=== PATIENT | female | born 1980 | race Caucasian/White ===

== ENCOUNTER 2022-05-03 10:38 | Day surgery (SDC) | payer OTHER ==
[2022-05-03] MEDS ORDERED: LIDOCAINE HCL 1% 50 MG/5 ML VL PF IJ ONE (10:39)
[2022-05-03] MEDS ORDERED: Sodium Chloride 0.9(Preservative Free) 10 ML IJ ONE (10:39)
[2022-05-03] MEDS ORDERED: Depo-Medrol 40 MG/ML IM ONE (10:39)
[2022-05-03] MEDS ORDERED: DIPRIVAN 200 MG/20 ML IV ONE (13:32)
[2022-05-03] MEDS ORDERED: MORPHINE SULFATE 2 MG INJ ONE ×2 (13:51→14:02)
[2022-05-03] MEDS ORDERED: Lactated Ringers 1,000 ML IV ONE (14:28)
--- NOTE | 2022-05-03 16:52 | XRAY ---
Indication: Caudal MAXIMINO. Intraoperative fluoroscopy provided for 17 seconds. 5 digital spot image submitted for interpretation demonstrates caudal needle tip projecting mid sacrum. Small amount of contrast injected for needle tip placement. Correlate with intraoperative findings/report.
--- NOTE | 2022-05-04 08:39 | XRAY ---
17 seconds of fluoroscopy was used in surgery for a caudal MAXIMINO.
== END 2022-05-03 14:10 | disposition home or self-care (01) ==
LOC: SDC-PAIN 10:38
PROVIDERS: ATTEND Psychiatry & Neurology Pain Medicine
DX: M54.16 Radiculopathy, lumbar region (principal); Z79.899 Other long term (current) drug therapy
CPT/HCPCS: 62323; 72220; 77003; 81025; J1030; J2001; J2270; J2704; Q9966

== ENCOUNTER 2022-10-04 12:47 | Day surgery (SDC) | payer OTHER ==
[2022-10-04] MEDS ORDERED: LIDOCAINE HCL 2% 100 MG/5 ML IJ ONE (12:48)
[2022-10-04 13:47] LABS: HCG URINE TEST NEGATIVE (NEGATIVE)
[2022-10-04] MEDS ORDERED: DIPRIVAN 200 MG/20 ML IV ONE ×2 (14:20→14:29)
--- NOTE | 2022-10-04 15:10 | XRAY ---
Indication: Bilateral L4-S1 MBB. Intraoperative fluoroscopy provided for 5 seconds. Single digital spot image submitted for interpretation demonstrates posterior needle tips projecting over the expected left and right L4-S1 nerve roots. Correlate with intraoperative findings/report.
[2022-10-04] MEDS ORDERED: MORPHINE SULFATE 2 MG INJ ONE (15:15)
[2022-10-04] MEDS ORDERED: Lactated Ringers 1,000 ML IV ONE (16:51)
--- NOTE | 2022-10-04 20:13 | XRAY ---
5 seconds of fluoroscopy was used in surgery for a bilateral L4-S1 MBB.
== END 2022-10-04 15:35 | disposition home or self-care (01) ==
LOC: SDC-PAIN 12:47
PROVIDERS: ATTEND Psychiatry & Neurology Pain Medicine
DX: M47.816 Spondylosis without myelopathy or radiculopathy, lumbar region (principal); Z79.899 Other long term (current) drug therapy
CPT/HCPCS: 64493; 64494; 72020; 77002; 81025; J2270; J2704

== ENCOUNTER 2022-11-08 12:40 | Day surgery (SDC) | payer OTHER ==
[2022-11-08] MEDS ORDERED: BUPIVACAINE 0.5% VIAL IJ ONE (12:41)
[2022-11-08 13:23] LABS: HCG URINE TEST NEGATIVE (NEGATIVE)
[2022-11-08] MEDS ORDERED: Versed 2 MG/2 ML Injection ONE ×2 (13:33→14:33)
[2022-11-08] MEDS ORDERED: DIPRIVAN 200 MG/20 ML IV ONE (14:32)
[2022-11-08] MEDS ORDERED: MORPHINE SULFATE 2 MG INJ ONE (14:59)
[2022-11-08] MEDS ORDERED: Lactated Ringers 1,000 ML IV ONE (16:16)
--- NOTE | 2022-11-08 16:40 | XRAY ---
Indication: Bilateral L4-S1 MBB. Intraoperative fluoroscopy provided for 15 seconds. Single digital spot image submitted for interpretation demonstrates posterior needle tips projecting over the expected left and right L4-S1 nerve roots. Correlate with intraoperative findings/report.
--- NOTE | 2022-11-08 16:46 | XRAY ---
15 seconds of fluoroscopy was used in surgery for a bilateral L4-S1 MBB.
== END 2022-11-08 14:56 | disposition home or self-care (01) ==
LOC: SDC-PAIN 12:40
PROVIDERS: ATTEND Psychiatry & Neurology Pain Medicine
DX: M47.816 Spondylosis without myelopathy or radiculopathy, lumbar region (principal); Z79.899 Other long term (current) drug therapy
CPT/HCPCS: 64493; 64494; 72020; 77002; 81025; J2250; J2270; J2704

== ENCOUNTER 2022-12-20 12:55 | Day surgery (SDC) | payer OTHER ==
[2022-12-20] MEDS ORDERED: BUPIVACAINE 0.5% VIAL IJ ONE (12:56)
[2022-12-20] MEDS ORDERED: Depo-Medrol 40 MG/ML IM ONE (12:56)
[2022-12-20] MEDS ORDERED: LIDOCAINE HCL 1% 50 MG/5 ML VL PF IJ ONE (12:56)
[2022-12-20 14:22] LABS: HCG URINE TEST NEGATIVE (NEGATIVE)
[2022-12-20] MEDS ORDERED: Versed 2 MG/2 ML Injection ONE (15:56)
[2022-12-20] MEDS ORDERED: DIPRIVAN 200 MG/20 ML IV ONE (15:56)
[2022-12-20] MEDS ORDERED: Lactated Ringers 1,000 ML IV ONE (16:30)
--- NOTE | 2022-12-20 17:03 | XRAY ---
Indication: Right L4-S1 RFA. Intraoperative fluoroscopy provided for 16 seconds. For digital spot image submitted for interpretation demonstrates posterior needle tips projecting over the expected right L4-S1 nerve roots. Correlate with intraoperative findings/report.
--- NOTE | 2022-12-20 17:21 | XRAY ---
16 seconds of fluoroscopy was used in surgery for a right L4-S1 RFA.
== END 2022-12-20 16:20 | disposition home or self-care (01) ==
LOC: SDC-PAIN 12:55
PROVIDERS: ATTEND Psychiatry & Neurology Pain Medicine
DX: M47.816 Spondylosis without myelopathy or radiculopathy, lumbar region (principal); Z79.899 Other long term (current) drug therapy
CPT/HCPCS: 64635; 64636; 72100; 77002; 81025; J1030; J2001; J2250; J2704

== ENCOUNTER 2022-12-21 10:49 | Day surgery (SDC) | payer OTHER ==
[2022-12-21] MEDS ORDERED: Depo-Medrol 40 MG/ML IM ONE (10:50)
[2022-12-21] MEDS ORDERED: BUPIVACAINE 0.5% VIAL IJ ONE (10:50)
[2022-12-21] MEDS ORDERED: XYLOCAINE 1% HCL 20 ML MDV IJ ONE (10:50)
[2022-12-21 12:24] LABS: HCG URINE TEST NEGATIVE (NEGATIVE)
[2022-12-21] MEDS ORDERED: DIPRIVAN 200 MG/20 ML IV ONE (13:20)
[2022-12-21] MEDS ORDERED: MORPHINE SULFATE 2 MG INJ ONE (13:40)
[2022-12-21] MEDS ORDERED: Lactated Ringers 1,000 ML IV ONE (14:28)
--- NOTE | 2022-12-21 16:27 | XRAY ---
Indication: Left L4-S1 RFA Intraoperative fluoroscopy provided for 24 seconds. 5 digital spot image submitted for interpretation demonstrates posterior needle tips projecting over the expected left L4-S1 nerve roots. Correlate with intraoperative findings/report.
--- NOTE | 2022-12-21 16:37 | XRAY ---
24 seconds of fluoroscopy was used in surgery for a left L4-S1 RFA.
== END 2022-12-21 14:05 | disposition home or self-care (01) ==
LOC: SDC-PAIN 10:49
PROVIDERS: ATTEND Psychiatry & Neurology Pain Medicine
DX: M47.816 Spondylosis without myelopathy or radiculopathy, lumbar region (principal)
CPT/HCPCS: 64635; 64636; 72100; 77002; 81025; J1030; J2270; J2704

== ENCOUNTER 2023-01-31 12:58 | Day surgery (SDC) | payer OTHER ==
[2023-01-31] MEDS ORDERED: Sodium Chloride 0.9(Preservative Free) 10 ML IJ ONE (12:59)
[2023-01-31] MEDS ORDERED: Decadron 4 MG INJ IV ONE (12:59)
[2023-01-31 14:09] LABS: HCG URINE TEST NEGATIVE (NEGATIVE)
[2023-01-31] MEDS ORDERED: DIPRIVAN 200 MG/20 ML IV ONE (14:37)
[2023-01-31] MEDS ORDERED: Versed 2 MG/2 ML Injection ONE (14:38)
[2023-01-31] MEDS ORDERED: MORPHINE SULFATE 2 MG INJ ONE ×2 (15:00→15:21)
[2023-01-31] MEDS ORDERED: Lactated Ringers 1,000 ML IV ONE (15:34)
--- NOTE | 2023-01-31 20:59 | XRAY ---
Indication: Left L4-S1 transforaminal MAXIMINO. Intraoperative fluoroscopy provided for 19 seconds. 4 digital spot image submitted for interpretation demonstrates posterior needle tip projecting over the expected left L4 and L5 nerve roots. Small amount of contrast injected for needle tip placement. Correlate with intraoperative findings/report.
--- NOTE | 2023-01-31 21:43 | XRAY ---
19 seconds of fluoroscopy was used in surgery for a left L4-S1 transforaminal MAXIMINO.
== END 2023-01-31 15:40 | disposition home or self-care (01) ==
LOC: SDC-PAIN 12:58
PROVIDERS: ATTEND Psychiatry & Neurology Pain Medicine
DX: M54.16 Radiculopathy, lumbar region (principal)
CPT/HCPCS: 64483; 64484; 72100; 77003; 81025; J1100; J2250; J2270; J2704; Q9966

== ENCOUNTER 2024-01-17 09:35 | Day surgery (SDC) | payer OTHER ==
[2024-01-17] MEDS ORDERED: Depo-Medrol 40 MG/ML IM ONE (09:36)
[2024-01-17] MEDS ORDERED: Sodium Chloride 0.9(Preservative Free) 10 ML IJ ONE (09:36)
[2024-01-17] MEDS ORDERED: DIPRIVAN 200 MG/20 ML IV ONE (11:44)
[2024-01-17] MEDS ORDERED: MORPHINE SULFATE 2 MG INJ ONE (12:10)
--- NOTE | 2024-01-17 13:01 | XRAY ---
13 seconds of fluoroscopy was used in surgery for a caudal MAXIMINO.
--- NOTE | 2024-01-17 13:06 | XRAY ---
Indication: Caudal MAXIMINO. Intraoperative fluoroscopy provided for 13 seconds. 2 digital spot image submitted for interpretation demonstrates caudal needle tip projecting mid sacrum. Small amount of contrast injected for needle tip placement. Correlate with intraoperative findings/report.
== END 2024-01-17 12:26 | disposition home or self-care (01) ==
LOC: SDC-PAIN 09:35
PROVIDERS: ATTEND Psychiatry & Neurology Pain Medicine
DX: M54.16 Radiculopathy, lumbar region (principal)
CPT/HCPCS: 62323; 72220; 77003; J2270; J2704; Q9966

== ENCOUNTER 2024-11-12 11:54 | Day surgery (SDC) | payer OTHER ==
[2024-11-12] MEDS ORDERED: BUPIVACAINE 0.5% VIAL IJ ONE (11:55)
[2024-11-12] MEDS ORDERED: propofoL IV ONE (13:35)
[2024-11-12] MEDS ORDERED: Lactated Ringers 1,000 ML IV ONE (13:39)
--- NOTE | 2024-11-12 17:00 | XRAY ---
Indication: Bilateral L4-S1 MBB. Intraoperative fluoroscopy provided for 7 seconds. Single digital spot image submitted for interpretation demonstrates posterior needle tips projecting over expected left and right L4-S1 nerve roots. Correlate with intraoperative findings/report.
--- NOTE | 2024-11-12 17:07 | XRAY ---
7 seconds of fluoroscopy was used in surgery for a bilateral L4-S1 MBB.
== END 2024-11-12 14:05 | disposition home or self-care (01) ==
LOC: SDC-PAIN 11:54
PROVIDERS: ATTEND Psychiatry & Neurology Pain Medicine
DX: M47.816 Spondylosis without myelopathy or radiculopathy, lumbar region (principal)

== ENCOUNTER 2024-12-17 11:39 | Day surgery (SDC) | payer OTHER ==
[2024-12-17] MEDS ORDERED: methylPREDNISolone acetate IM ONE (11:40)
[2024-12-17] MEDS ORDERED: LIDOCAINE HCL 1% 50 MG/5 ML VL IJ ONE (11:40)
[2024-12-17] MEDS ORDERED: BUPIVACAINE 0.5% VIAL IJ ONE (11:40)
[2024-12-17] MEDS ORDERED: propofoL IV ONE (14:01)
--- NOTE | 2024-12-17 15:18 | XRAY ---
Indication: Left L4-S1 RFA. Intraoperative fluoroscopy provided for 12 seconds. 4 digital spot image submitted for interpretation demonstrates posterior needle tips projecting over expected left L4-S1 nerve roots. Correlate with intraoperative findings/report.
--- NOTE | 2024-12-17 16:56 | XRAY ---
12 seconds of fluoroscopy was used in surgery for a left L4-S1 RFA.
[2024-12-17] MEDS ORDERED: Lactated Ringers 1,000 ML IV ONE (17:14)
== END 2024-12-17 14:50 | disposition home or self-care (01) ==
LOC: SDC-PAIN 11:39
PROVIDERS: ATTEND Psychiatry & Neurology Pain Medicine
DX: M47.817 Spondylosis without myelopathy or radiculopathy, lumbosacral region (principal)